=== PATIENT | female | born 1955 | race Caucasian/White ===

== ENCOUNTER → 2022-01-16 | Outpatient (CLI) | payer MEDICARE ==
[2022-01-22 09:11] LABS: HPV 16 Negative (Negative); HPV 18 Negative (Negative); HPV OTHER HR TYPES Positive (Negative)
== END ==
LOC: LAB SHORT 17:08 → LAB 17:08
PROVIDERS: Family Medicine
DX: Z01.419 Encounter for gynecological examination (general) (routine) without abnormal findings (principal)
CPT/HCPCS: 87624; G0145

== ENCOUNTER → 2022-02-24 | Outpatient (CLI) | payer MEDICARE | LOC: PLD 14:10 | DX: R21 Rash and other nonspecific skin eruption (principal) ==

== ENCOUNTER 2023-03-18 00:46 | Emergency (ER) | payer MEDICARE ==
[~2023-03-18] VITALS: Ht 165.1 cm; Wt 86.6 kg
[2023-03-18 01:18] VITALS: BP 185/91
== END 2023-03-18 03:23 | disposition home or self-care (01) ==
LOC: ER 00:46
DX: K08.89 Other specified disorders of teeth and supporting structures (principal); T36.0X5A Adverse effect of penicillins, initial encounter; T37.8X5A Adverse effect of other specified systemic anti-infectives and antiparasitics, initial encounter; X58.XXXA Exposure to other specified factors, initial encounter
CPT/HCPCS: 99283; J7512

== ENCOUNTER → 2023-03-22 | Outpatient (CLI) | payer MEDICARE ==
[2023-03-23 13:04] LABS: BASOPHILS ABSOLUTE AUTO 0.04 K/mm3 (0.00-0.23); BASOPHILS PERCENT AUTO 1 % (0-2); EOSINOPHILS ABSOLUTE AUTO 0.08 K/mm3 (0.00-0.68); EOSINOPHILS PERCENT AUTO 1 % (0-6); Hematocrit 40.5 % (33.0-51.0); Hemoglobin 13.7 g/dL (11.5-16.0); IMMATURE GRAN ABSOLUTE AUTO 0.02 K/mm3 (0.00-0.10); IMMATURE GRAN PERCENT AUTO 0 % (0-1); LYMPHOCYTES ABSOLUTE AUTO 2.26 K/mm3 (0.84-5.20); LYMPHOCYTES PERCENT AUTO 31 % (21-46); MONOCYTES ABSOLUTE AUTO 0.55 K/mm3 (0.16-1.47); MONOCYTES PERCENT AUTO 8 % (4-13); Mean Corpuscular HGB Conc 33.8 g/dL (31.5-36.5); Mean Corpuscular Volume 89 fL (80-100); Mean Platelet Volume 12.3 fL (9.1-12.4); NEUTROPHILS ABSOLUTE AUTO 4.37 K/mm3 (1.96-9.15); NEUTROPHILS PERCENT AUTO 60 % (41-73); Platelet Count 299 K/mm3 (150-400); RDW Coefficient Variation 16.3 % (11.7-14.2); RDW Standard Deviation 52.7 fL (35.1-46.3); Red Blood Cell Count 4.56 M/mm3 (3.80-5.20); White Blood Cell Count 7.32 K/mm3 (4.00-11.30)
[2023-03-23 21:25] LABS: Magnesium, Blood 2.1 mg/dL (1.6-2.4); Thyroid Stimulating Hormone 2.53 uIU/mL (0.360-4.800)
== END | disposition home or self-care (01) ==
LOC: LAB SHORT 09:50 → LAB 09:50
PROVIDERS: Family Medicine
DX: E03.9 Hypothyroidism, unspecified (principal); E87.6 Hypokalemia; R61 Generalized hyperhidrosis
CPT/HCPCS: 83735; 84443; 85025; 86140

== ENCOUNTER → 2023-04-27 | Outpatient (CLI) | payer MEDICARE ==
[2023-04-28 16:09] LABS: HPV 16 Negative (Negative); HPV 18 Negative (Negative); HPV OTHER HR TYPES Negative (Negative)
== END ==
LOC: LAB SHORT 15:54 → LAB 15:54
PROVIDERS: Obstetrics & Gynecology
DX: R87.810 Cervical high risk human papillomavirus (HPV) DNA test positive (principal)
CPT/HCPCS: 87624; 88175

== ENCOUNTER 2023-06-10 11:00 | Inpatient (IN) | payer MEDICARE, OTHER ==
[~2023-06-10] VITALS: Ht 166 cm; Wt 89.2 kg
[2023-06-10] VITALS (12 sets, daily range): BP systolic 106–145; BP diastolic 66–83
[~2023-06-10 11:00] MED LIST: CLON.5 PO; EPIPEN 2-P0.3 MG/0.1 INJ; EUTHYROX125 MCG PO; HYDCHL25 PO; IBUP800 PO; METO50ER PO; POTCHL20ER PO
--- NOTE | 2023-06-10 18:28 | NUR ---
PT ARRIVED TO UNIT FROM PACU TRANSFERRED PT FROM [facility] TO BED USING SLIDER SHEET. PT A&OX4. LCA. RR E/U ON 2L NC. BT HYPO X4. ABD SOFT TO PALPATION. TRANSVERSE DRESSING TO LOWER ABD CDI. UMBILICAL PORT SITE SECURED WITH TISSUE ADHESIVE, CDI. ORIENTED PT TO USE OF CALL LIGHT AND BED. PT REPORTED PAIN 8/10 TO ABD AND BACK. MEDICATED PER ORDERS W/ 0.5 MG DILAUDID IV. KPAD TO ABDOMEN FOR COMFORT. SPOUSE NOW BEDSIDE. CALL LIGHT IN REACH.
[2023-06-11 00:17] VITALS: BP 112/65
[2023-06-11 04:51] LABS: BASOPHILS ABSOLUTE AUTO 0.02 K/mm3 (0.00-0.23); BASOPHILS PERCENT AUTO 0 % (0-2); EOSINOPHILS PERCENT AUTO 0 % (0-6); Hematocrit 26.3 % (33.0-51.0); Hemoglobin 8.6 g/dL (11.5-16.0); IMMATURE GRAN PERCENT AUTO 1 % (0-1); LYMPHOCYTES ABSOLUTE AUTO 1.12 K/mm3 (0.84-5.20); LYMPHOCYTES PERCENT AUTO 8 % (21-46); MONOCYTES PERCENT AUTO 11 % (4-13); Mean Corpuscular HGB 29.8 pg (26.0-34.0); Mean Corpuscular HGB Conc 32.7 g/dL (31.5-36.5); Mean Corpuscular Volume 91 fL (80-100); Mean Platelet Volume 11.8 fL (9.1-12.4); NEUTROPHILS ABSOLUTE AUTO 10.69 K/mm3 (1.96-9.15); NEUTROPHILS PERCENT AUTO 80 % (41-73); Platelet Count 209 K/mm3 (150-400); RDW Coefficient Variation 16.2 % (11.7-14.2); RDW Standard Deviation 52.5 fL (35.1-46.3); Red Blood Cell Count 2.89 M/mm3 (3.80-5.20); White Blood Cell Count 13.43 K/mm3 (4.00-11.30)
[2023-06-11 04:57] VITALS: BP 102/50
[2023-06-11 05:36] LABS: Bun/Creatinine Ratio 19.9 (12.0-20.0); Calcium, Blood 8.1 mg/dL (8.5-10.1); Creatinine, Blood 0.96 mg/dL (0.40-1.00); Potassium, Blood 3.5 mmol/L (3.5-5.5)
--- NOTE | 2023-06-11 05:38 | NUR ---
SHIFT SUMMARY POD 1 ETIENNE W/ IVONNE PT SLEPT T/O NIGHT. PAIN MANAGED PER EMAR. TRANSVERSE INSICION HAS MEDIPORE DRESSING, C/D/I. FRANCISCO PAD CHANGED THIS MORNING, SCANT AMOUNT OF BLOOD ON THE PAD. EVERETT IN, DRAINING CLEAR YELLOW URINE. TOLERATING PO INTAKE. ABD MILDLY DISTENTED, SOFT TO PALPATION. VSS. NO OTHER CONCERNS AT THIS TIME. CALL LIGHT WITHIN REACH
[2023-06-11 07:29] VITALS: BP 98/55
[2023-06-11 15:12] VITALS: BP 116/63
--- NOTE | 2023-06-11 16:43 | NUR ---
SHIFT SUMMARY: POD 1 OPEN HYSTERECTOMY PATIENT IS A&OX4. VS ARE WNL AND IS ON RA WHILE AWAKE BUT ON 2L NC AT NIGHT PER PATIENT REQUEST. PAIN IS MANAGED WITH PO OXY, IV TORADOL, AND PO IBUPROFEN. HER ABD HAS X1 LAP SITE AND A TRANSVERSE INCISION WITH WOUND GLUE THAT ARE C/D/I. SHE IS TOLERATING PO INTAKE AND DENIES NAUSEA OR VOMITING. PATIENT IS A SBA TO THE CHAIR AND BACK TO BED. PATIENT HAS EVERETT IN AND IS TO BE DISCONTINUED TOMORROW PER DR. GUTIERRES ORDERS. HER EVERETT IS DRAINING YELLOW URINE PER GRAVITY. SHE IS SITTING IN THE RECLINER CHAIR WITH CALL LIGHT IN REACH.
[2023-06-11 19:13] VITALS: BP 112/59
--- NOTE | 2023-06-12 04:29 | NUR ---
SHIFT SUMMARY POD2 ETIENNE W/IVONNE PT SLEPT T/O NIGHT. PAIN MANAGED PER EMAR. ABD BINDER ON. DRESSING TO TRASNVERSE INCISION C/D/I. EVERETT DRAINING CLEAR YELLOW URINE. TOLERATING PO INTAKE. PT REPORTS PASSING GAS. VSS. NO OTHER CONCERNS AT THIS TIME CALL LIGHT WITHIN REACH.
[2023-06-12 06:13] VITALS: BP 143/73
[2023-06-12 07:37] VITALS: BP 136/71
[2023-06-12 14:44] VITALS: BP 135/75
--- NOTE | 2023-06-12 19:51 | NUR ---
pt has been stable post op day 2 for abd hyster. medipore dressing clean and dry. abd binder in place. kpad used for comfort. prn oxycodone effective for pain. tolerating reg diet. voiding well after johnson dc'd this am. pt iv infiltrated, order for ok to leave out. pt worked well with nursing to mobilize this shift. uses call light appropriately.
[2023-06-12 20:18] VITALS: BP 163/57
[2023-06-13 04:02] VITALS: BP 147/79
[2023-06-13 04:05] VITALS: BP 147/79
--- NOTE | 2023-06-13 05:50 | NUR ---
SHIFT SUMMARY POD3 VAG TO LAP HYSTER W/ ABD ADHESIONS. TRANS ABD MEDIPORE DRESSING C/D/I, ABD BINDER IN PLACE. PT MEDICATED W/ 5MG ARSLAN 2X THIS SHIFT FOR 7/10 PAIN. UP TO BATHROOM W/ SBA. PT AMBULATED 1X IN ALONSO APPROX 50FT, TOLERATED WELL. BP CONTINUES TO BE ELEVATED 163/57 AND 147/79. PT REPORTS BP MEDS AT BASELINE AND NOT TAKING DURING ADMISSION. NO ACUTE CHANGES THIS SHIFT, CALL LIGHT W/IN REACH.
[2023-06-13 07:32] VITALS: BP 127/79
[2023-06-13] MEDS ORDERED: OXAYDO5 M1 PO (11:37)
[2023-06-13] MEDS ORDERED: SIME80CH PO (11:38)
--- NOTE | 2023-06-13 12:29 | NUR ---
DISCHARGE PATIENT READ AND SIGNS UNDERSTANDING OF ALL DISCHARGE INSTRUCTIONS. BELONGINGS GATHERED AND SPOUSE IS HERE TO DRIVE PATIENT HOME. IV IS ALREADY TAKEN OUT ON PRIOR SHIFT. PATIENT DENIES ANY NEED FOR ADDITIONAL INSTRUCTIONS AND IS WHEELED OUT IN WHEEL CHAIR TO AWAITING CAR.
== END 2023-06-13 12:00 | disposition home or self-care (01) | DRG 742 ==
LOC: SURS 11:22 → PRE IP 13:15 → SURS 17:38
PROVIDERS: Surgery; ADMIT Obstetrics & Gynecology
PROC: 0UT50ZZ Resection of Right Fallopian Tube, Open Approach (ICD-10-PCS; 2023-06-10)
PROC: 0UJD4ZZ Inspection of Uterus and Cervix, Percutaneous Endoscopic Approach (ICD-10-PCS; 2023-06-10)
PROC: 0TSD0ZZ Reposition Urethra, Open Approach (ICD-10-PCS; 2023-06-10)
PROC: 0WJR7ZZ Inspection of Genitourinary Tract, Via Natural or Artificial Opening Approach (ICD-10-PCS; 2023-06-10)
PROC: 0UT90ZZ Resection of Uterus, Open Approach (ICD-10-PCS; principal; 2023-06-10 13:15)
PROC: 0UT00ZZ Resection of Right Ovary, Open Approach (ICD-10-PCS; 2023-06-10 13:15)
DX: N81.3 Complete uterovaginal prolapse (principal); D62 Acute posthemorrhagic anemia; N39.3 Stress incontinence (female) (male); N73.6 Female pelvic peritoneal adhesions (postinfective); E03.9 Hypothyroidism, unspecified; F41.9 Anxiety disorder, unspecified; F32.A Depression, unspecified; M79.7 Fibromyalgia; E66.9 Obesity, unspecified; M19.90 Unspecified osteoarthritis, unspecified site; I10 Essential (primary) hypertension; Z53.31 Laparoscopic surgical procedure converted to open procedure; Z88.8 Allergy status to other drugs, medicaments and biological substances; Z68.32 Body mass index [BMI] 32.0-32.9, adult; Z88.1 Allergy status to other antibiotic agents
CPT/HCPCS: 36415; 80048; 85025; 88307; 94760; A9270; J0690; J1100; J1170; J1650; J1885; J2250; J2405; J2704; J2916; J3010; J7120

== ENCOUNTER → 2023-07-03 | Outpatient (CLI) | payer MEDICARE, OTHER ==
[~2023-07-03] MED LIST changes: +OXAYDO5 M1 PO; +SIME80CH PO
[2023-07-03 13:15] LABS: BASOPHILS ABSOLUTE AUTO 0.03 K/mm3 (0.00-0.23); BASOPHILS PERCENT AUTO 1 % (0-2); EOSINOPHILS ABSOLUTE AUTO 0.09 K/mm3 (0.00-0.68); EOSINOPHILS PERCENT AUTO 2 % (0-6); Hematocrit 34.1 % (33.0-51.0); Hemoglobin 11.3 g/dL (11.5-16.0); IMMATURE GRAN ABSOLUTE AUTO 0.03 K/mm3 (0.00-0.10); IMMATURE GRAN PERCENT AUTO 1 % (0-1); LYMPHOCYTES ABSOLUTE AUTO 1.48 K/mm3 (0.84-5.20); LYMPHOCYTES PERCENT AUTO 31 % (21-46); MONOCYTES ABSOLUTE AUTO 0.34 K/mm3 (0.16-1.47); MONOCYTES PERCENT AUTO 7 % (4-13); Mean Corpuscular HGB 30.8 pg (26.0-34.0); Mean Corpuscular HGB Conc 33.1 g/dL (31.5-36.5); Mean Corpuscular Volume 93 fL (80-100); Mean Platelet Volume 11.7 fL (9.1-12.4); NEUTROPHILS ABSOLUTE AUTO 2.86 K/mm3 (1.96-9.15); NEUTROPHILS PERCENT AUTO 59 % (41-73); Platelet Count 373 K/mm3 (150-400); RDW Coefficient Variation 17.4 % (11.7-14.2); RDW Standard Deviation 58.5 fL (35.1-46.3); Red Blood Cell Count 3.67 M/mm3 (3.80-5.20); White Blood Cell Count 4.83 K/mm3 (4.00-11.30)
[2023-07-03 13:27] LABS: Albumin, Blood 3.6 g/dL (3.4-5.0); Albumin/Globulin Ratio 0.7 (0.8-1.8); Bilirubin, Total 0.4 mg/dL (0.1-1.0); Bun/Creatinine Ratio 20.7 (12.0-20.0); Calcium, Blood 9.1 mg/dL (8.5-10.1); Creatinine, Blood 0.77 mg/dL (0.40-1.00); Globulin, Blood 4.9 g/dL (2.2-4.0); Potassium, Blood 3.9 mmol/L (3.5-5.5); Total Protein, Blood 8.5 g/dL (6.4-8.2)
== END ==
LOC: LAB 09:57 → LAB SHORT 09:57
PROVIDERS: Physician Assistant
DX: Z48.01 Encounter for change or removal of surgical wound dressing (principal)
CPT/HCPCS: 80053; 85025; 87070; 87075; 87077; 87186; 87205

== ENCOUNTER → 2024-02-02 | Outpatient (CLI) | payer MEDICARE ==
[2024-02-02 15:34] LABS: Bacterial Vaginosis PCR Negative (NEGATIVE); Candida Group, PCR NOT DETECTED (NOT DETECT); Candida glabrata-krusei, PCR NOT DETECTED (NOT DETECT)
== END ==
LOC: LAB SHORT 10:11 → LAB 10:11
PROVIDERS: Advanced Practice Midwife
DX: N76.0 Acute vaginitis (principal)
CPT/HCPCS: 87481; 87661; 87801

== ENCOUNTER 2024-03-26 05:51 | Emergency (ER) | payer MEDICARE ==
[~2024-03-26] VITALS: Ht 165.1 cm; Wt 81.7 kg
[~2024-03-26 05:51] MED LIST changes: +MECL25 PO; +ONDA4ODT MM
[2024-03-26] MEDS ORDERED: Ondansetron HCl 2 MG / ML 2ML Vial IV ONE (06:00)
[2024-03-26] MEDS ORDERED: Morphine Sulfate 4 MG/1 ML Injection IV ONE (06:00)
[2024-03-26 06:17] LABS: BASOPHILS ABSOLUTE AUTO 0.02 K/mm3 (0.00-0.23); BASOPHILS PERCENT AUTO 0 % (0-2); EOSINOPHILS ABSOLUTE AUTO 0.02 K/mm3 (0.00-0.68); EOSINOPHILS PERCENT AUTO 0 % (0-6); Hematocrit 26.6 % (33.0-51.0); Hemoglobin 9.2 g/dL (11.5-16.0); IMMATURE GRAN ABSOLUTE AUTO 0.04 K/mm3 (0.00-0.10); IMMATURE GRAN PERCENT AUTO 1 % (0-1); LYMPHOCYTES ABSOLUTE AUTO 1.15 K/mm3 (0.84-5.20); LYMPHOCYTES PERCENT AUTO 19 % (21-46); MONOCYTES ABSOLUTE AUTO 0.35 K/mm3 (0.16-1.47); MONOCYTES PERCENT AUTO 6 % (4-13); Mean Corpuscular HGB 29.2 pg (26.0-34.0); Mean Corpuscular HGB Conc 34.6 g/dL (31.5-36.5); Mean Corpuscular Volume 84 fL (80-100); Mean Platelet Volume 11.2 fL (9.1-12.4); NEUTROPHILS ABSOLUTE AUTO 4.48 K/mm3 (1.96-9.15); NEUTROPHILS PERCENT AUTO 74 % (41-73); Platelet Count 366 K/mm3 (150-400); RDW Coefficient Variation 16.3 % (11.7-14.2); RDW Standard Deviation 45.7 fL (35.1-46.3); Red Blood Cell Count 3.15 M/mm3 (3.80-5.20); White Blood Cell Count 6.06 K/mm3 (4.00-11.30)
[2024-03-26 06:39] LABS: Albumin/Globulin Ratio 0.5 (0.8-1.8); Bilirubin, Total 0.9 mg/dL (0.1-1.0); Bun/Creatinine Ratio 18.8 (12.0-20.0); Calcium, Blood 9.6 mg/dL (8.5-10.1); Creatinine, Blood 0.85 mg/dL (0.40-1.00); Globulin, Blood 5.9 g/dL (2.2-4.0); Potassium, Blood 3.8 mmol/L (3.5-5.5); Total Protein, Blood 8.9 g/dL (6.4-8.2)
[2024-03-26] MEDS ORDERED: OxyCODONE 5 mg/Acetamin 325 mg TABLET PO ONE (07:15)
[2024-03-26 07:22] LABS: Source, Urine Clean Catch
[2024-03-26 07:26] LABS: Appearance, Urine Hazy (Clear); Bilirubin, Urine Neg (Neg); Blood, Urine 4+ (Neg); Color, Urine Amber (P-Yellow); Glucose Qualitative, Urine Neg (Neg); Ketones, Urine Neg (Neg); Leukocyte Esterase, Urine 3+ (Neg); Nitrite, Urine Neg (Neg); Protein, Urine 2+ (Neg); Specific Gravity, Urine 1.005 (1.003-1.022); Urobilinogen, Urine 2+ (Normal)
[2024-03-26] MEDS ORDERED: OXYACE7.5T PO (07:29)
[2024-03-26] MEDS ORDERED: DOCU100 PO (07:29)
[2024-03-26] MEDS ORDERED: LIDO700A20 TOP (07:29)
[2024-03-26 07:38] VITALS: BP 133/68
[2024-03-26 07:48] LABS: Red Blood Cells, Urine 0-2 /hpf (0-2); Squamous Epithelial Cells Few /hpf (Few)
[2024-03-26 07:49] LABS: Bacteria Mod /hpf
[2024-03-26] MEDS ORDERED: CEPH500 PO (07:52)
[2024-03-26] MEDS ORDERED: RX Prepack 6 Tabs Oxycodone 5mg UD ONE (08:00)
== END 2024-03-26 08:17 | disposition home or self-care (01) ==
LOC: ER 05:51
PROVIDERS: Emergency Medicine
DX: N39.0 Urinary tract infection, site not specified (principal); R10.11 Right upper quadrant pain; E03.9 Hypothyroidism, unspecified; I10 Essential (primary) hypertension; Z79.899 Other long term (current) drug therapy; Z91.030 Bee allergy status; Z88.8 Allergy status to other drugs, medicaments and biological substances
CPT/HCPCS: 71045; 74177; 80053; 81001; 84484; 85025; 87086; 93005; 93010; 96374-59; 96375; 99285-25; A9270; J2270; J2405; Q9967

== ENCOUNTER → 2024-04-07 | Outpatient (CLI) | payer MEDICARE ==
[~2024-04-07] MED LIST changes: +CEPH500 PO; +DOCU100 PO; +LIDO700A20 TOP; +OXYACE7.5T PO
[2024-04-08 11:32] LABS: Stool Occult Bld Immuno 1 Negative (NEGATIVE)
== END ==
LOC: LAB 14:54 → LAB SHORT 14:54
PROVIDERS: Family Medicine
DX: Z12.11 Encounter for screening for malignant neoplasm of colon (principal)
CPT/HCPCS: G0328